=== PATIENT | male | born 1965 | race Caucasian/White ===

== ENCOUNTER 2020-12-16 12:21 | Day surgery (SDC) | payer OTHER ==
[2020-12-15 10:14] VITALS: BMI 23.9
[2020-12-16] MEDS ORDERED: MIDAZOLAM HCL 2 MG/2 ML SINGLE DOSE VIAL ONE (13:28)
[2020-12-16] MEDS ORDERED: PROPOFOL 20 ML ONE (13:28)
[2020-12-16] MEDS ORDERED: BUPIVACAINE HCL/PF 0.5% (5MG/ML) 10 ML VIAL ONE (13:31)
[2020-12-16] MEDS ORDERED: LIDOCAINE 1%/EPI 1:100000 (50 ML MULTI DOSE VIAL) ONE (13:31)
[2020-12-16] MEDS ORDERED: ONDANSETRON 4 MG/2 ML VIAL IVPUSH PRN (13:49)
[2020-12-16] MEDS ORDERED: oxyCODONE HCL 5 MG TABLET PO PRN (13:49)
[2020-12-16] MEDS ORDERED: LACTATED RINGERS SOLUTION 1,000 ML IV SCH (14:00)
[2020-12-16] MEDS ORDERED: LIDOCAINE 1%/EPI 1:100000 (20 ML MULTI DOSE VIAL) IJ ONE (14:03)
[2020-12-16] MEDS ORDERED: BUPIVACAINE HCL/PF 0.5% (5MG/ML) 10 ML VIAL IJ ONE (14:16)
[2020-12-16 16:08] VITALS: BP 129/82; PULSE 64; TEMP 97.6
== END 2020-12-16 16:10 | disposition home or self-care (01) ==
LOC: JASU-SURG 12:21
PROVIDERS: ATTEND Orthopaedic Surgery
PROC: 0SBC4ZZ Excision of Right Knee Joint, Percutaneous Endoscopic Approach (ICD-10-PCS; principal; 2020-12-16 13:45)
DX: S83.231A Complex tear of medial meniscus, current injury, right knee, initial encounter (principal); X58.XXXA Exposure to other specified factors, initial encounter; Y93.9 Activity, unspecified; Y92.9 Unspecified place or not applicable; Y99.9 Unspecified external cause status
CPT/HCPCS: 94760